=== PATIENT | male | born 1985 | race Hispanic/Latino ===

== ENCOUNTER 2023-06-07 23:37 | Inpatient (IN) | payer OTHER ==
[2023-06-08] MEDS ORDERED: cefTRIAXone (ROCEPHIN) 2 GM VIAL ONE (00:35)
[2023-06-08] MEDS ORDERED: Ketorolac Tromethamine 30 MG/ML VIAL ONE (00:35)
[2023-06-08 01:03] LABS: #Basophils 0.1 10x3/uL (0.0-0.2); #Neutrophils 9.5 10x3/uL (1.5-8.4); %Basophils 0.4 % (0.0-2.0); %Eosinophils 0.1 % (0.0-6.0); %Monocytes 8.5 % (0.0-10.0); %Neutrophils 79.6 % (40.0-75.0); Hematocrit 42.9 % (38.8-50.0); Hemoglobin 14.5 g/dL (13.5-17.5); Mean Corpuscular HGB CONC 33.8 g/dL (32.0-36.0); Mean Corpuscular Hemoglobin 30.5 pg (27.0-33.0); Mean Corpuscular Volume 90.1 fl (81.2-95.1); Mean Platelet Volume 10.1 fl (7.4-10.4); Platelet Count 208 10x3/uL (150-450); RBC Distribution Width 13.7 % (11.5-14.5); Red Blood Cell (RBC) Count 4.76 10x6/uL (4.32-5.72)
[2023-06-08 01:16] LABS: ALT (SGPT) 13 U/L (8-55); AST (SGOT) 7 U/L (5-34); Albumin 3.8 g/dL (3.5-5.0); Alkaline Phosphatase 70 U/L (40-110); Anion Gap 14 mmol/L (10-20); BUN (Urea Nitrogen) 8 mg/dL (8.9-20.6); Bilirubin, Total 0.6 mg/dL (0.2-1.2); Calc. Creatinine Clearance 0 mL/min (70-130); Calcium 8.6 mg/dL (7.8-10.44); Carbon Dioxide 21 mmol/L (22-29); Chloride 107 mmol/L (98-107); Estimated GFR 116; Globulin 2.8 g/dL (2.4-3.5); Glucose 92 mg/dL (70-105); Potassium 2.9 mmol/L (3.5-5.1); Protein, Total 6.6 g/dL (6.0-8.3); Sodium 139 mmol/L (136-145)
[2023-06-08] MEDS ORDERED: Potassium Chloride 20 MEQ TAB ONE ×2 (04:31→09:01)
[2023-06-08] MEDS ORDERED: Calcium Carbonate 500 MG ChewTAB PO PRN (05:17)
[2023-06-08] MEDS ORDERED: Ondansetron PF 4 MG/2 ML Vial IVP PRN (05:17)
[2023-06-08] MEDS ORDERED: Acetaminophen 325 MG TAB PO PRN (05:17)
[2023-06-08] MEDS ORDERED: Senokot S 8.6-50 MG TAB PO PRN (05:17)
[2023-06-08] MEDS ORDERED: HYDROcodone/Acetaminophen 5/325 mg Tablet PO PRN (05:17)
[2023-06-08] MEDS ORDERED: Vancomycin 1 GM VIAL ONE (05:48)
[2023-06-08] MEDS ORDERED: Lactated Ringer's 1,000 ML IV SCH (06:00)
[2023-06-08] MEDS ORDERED: Potassium Chloride 20 MEQ TAB PO SCH ×2 (06:00→09:00)
[2023-06-08 06:25] VITALS: BMI 26.6
[2023-06-08 06:45] LABS: SARS-CoV-2 NAA Rapid Test Not Detected (NotDetected)
[2023-06-08] MEDS ORDERED: Lactated Ringer's 1,000 ML ONE (08:49)
[2023-06-08] MEDS ORDERED: levETIRAcetam 500 MG TAB ONE (08:49)
[2023-06-08] MEDS: Lactated Ringer's 1,000 ML IV SCH ×2 (09:17→17:22)
[2023-06-08] MEDS: Betamethasone 0.1% Cream 15 GM TUBE TOP SCH ×2 (09:18→21:49)
[2023-06-08] MEDS: levETIRAcetam 500 MG TAB PO SCH ×2 (09:19→22:13)
[2023-06-08] MEDS: Vancomycin HCl 1 GM in Sodium Chloride 0.9% 250 ML 250 ML IVPB SCH ×2 (13:43→21:50)
[2023-06-08] MEDS: cefTRIAXone\\ROCEPHIN 2 GM in Sodium Chloride 0.9% 100 ML IVPB SCH (21:49)
[2023-06-09] MEDS: Lactated Ringer's 1,000 ML IV SCH ×3 (03:00→23:04)
[2023-06-09 05:06] LABS: #Basophils 0.1 10x3/uL (0.0-0.2); #Eosinphils 0.2 10x3/uL (0.0-0.5); #Neutrophils 7.5 10x3/uL (1.5-8.4); %Basophils 0.6 % (0.0-2.0); %Eosinophils 2.2 % (0.0-6.0); %Lymphocytes 15.3 % (18.0-47.0); %Monocytes 9.9 % (0.0-10.0); %Neutrophils 71.3 % (40.0-75.0); Hematocrit 45.7 % (38.8-50.0); Hemoglobin 14.9 g/dL (13.5-17.5); Mean Corpuscular HGB CONC 32.6 g/dL (32.0-36.0); Mean Corpuscular Volume 92.1 fl (81.2-95.1); Mean Platelet Volume 10.3 fl (7.4-10.4); Platelet Count 204 10x3/uL (150-450); RBC Distribution Width 13.9 % (11.5-14.5); Red Blood Cell (RBC) Count 4.96 10x6/uL (4.32-5.72); White Blood Cell (WBC) Count 10.6 10x3/uL (3.5-10.5)
[2023-06-09 05:32] LABS: Anion Gap 14 mmol/L (10-20); BUN (Urea Nitrogen) 7 mg/dL (8.9-20.6); Calc. Creatinine Clearance 149 mL/min (70-130); Calcium 8.8 mg/dL (7.8-10.44); Carbon Dioxide 21 mmol/L (22-29); Chloride 107 mmol/L (98-107); Estimated GFR 119; Glucose 139 mg/dL (70-105); Magnesium 1.9 mg/dL (1.6-2.6); Potassium 3.7 mmol/L (3.5-5.1); Sodium 138 mmol/L (136-145)
[2023-06-09 06:05] LABS: Vancomycin, Trough 11.2 ug/mL
[2023-06-09] MEDS: Vancomycin HCl 1 GM in Sodium Chloride 0.9% 250 ML 250 ML IVPB SCH ×3 (06:48→23:05)
[2023-06-09] MEDS: Magnesium Oxide 400 MG TAB PO SCH (09:15)
[2023-06-09] MEDS: levETIRAcetam 500 MG TAB PO SCH ×2 (09:16→22:12)
[2023-06-09] MEDS: Betamethasone 0.1% Cream 15 GM TUBE TOP SCH ×2 (09:16→22:12)
[2023-06-09] MEDS ORDERED: diphenhydrAMINE 30 GM TUBE TOP PRN (16:04)
[2023-06-09] MEDS: diphenhydrAMINE 25 MG CAP PO PRN (17:51)
[2023-06-09] MEDS: cefTRIAXone\\ROCEPHIN 2 GM in Sodium Chloride 0.9% 100 ML IVPB SCH (22:11)
[2023-06-10] MEDS: diphenhydrAMINE 25 MG CAP PO PRN ×2 (01:08→09:24)
[2023-06-10 05:34] LABS: #Basophils 0.1 10x3/uL (0.0-0.2); #Eosinphils 0.4 10x3/uL (0.0-0.5); #Neutrophils 5.7 10x3/uL (1.5-8.4); %Basophils 0.7 % (0.0-2.0); %Eosinophils 4.7 % (0.0-6.0); %Lymphocytes 22.1 % (18.0-47.0); %Monocytes 10.4 % (0.0-10.0); %Neutrophils 61.7 % (40.0-75.0); Hematocrit 45.8 % (38.8-50.0); Hemoglobin 15.2 g/dL (13.5-17.5); Mean Corpuscular HGB CONC 33.2 g/dL (32.0-36.0); Mean Corpuscular Hemoglobin 30.2 pg (27.0-33.0); Mean Corpuscular Volume 90.9 fl (81.2-95.1); Mean Platelet Volume 10.1 fl (7.4-10.4); Platelet Count 232 10x3/uL (150-450); Red Blood Cell (RBC) Count 5.04 10x6/uL (4.32-5.72); White Blood Cell (WBC) Count 9.2 10x3/uL (3.5-10.5)
[2023-06-10 05:41] LABS: Anion Gap 15 mmol/L (10-20); BUN (Urea Nitrogen) 9 mg/dL (8.9-20.6); Calc. Creatinine Clearance 160 mL/min (70-130); Calcium 9.1 mg/dL (7.8-10.44); Carbon Dioxide 23 mmol/L (22-29); Chloride 106 mmol/L (98-107); Estimated GFR 121; Glucose 86 mg/dL (70-105); Potassium 4.2 mmol/L (3.5-5.1); Sodium 140 mmol/L (136-145); Vancomycin, Trough 13.8 ug/mL
[2023-06-10] MEDS: Vancomycin HCl 1 GM in Sodium Chloride 0.9% 250 ML 250 ML IVPB SCH ×3 (05:53→21:46)
[2023-06-10] MEDS: levETIRAcetam 500 MG TAB PO SCH ×2 (09:18→21:00)
[2023-06-10] MEDS: Magnesium Oxide 400 MG TAB PO SCH (09:18)
[2023-06-10] MEDS: Triamcinolone 0.1% Cream 15 GM TUBE TOP SCH ×2 (09:18→21:02)
[2023-06-10] MEDS: cefTRIAXone\\ROCEPHIN 2 GM in Sodium Chloride 0.9% 100 ML IVPB SCH (20:56)
[2023-06-10] MEDS: diphenhydrAMINE 25 MG CAP PO SCH (21:00)
[2023-06-10] MEDS ORDERED: Montelukast Sodium 10 mg Tablet PO SCH (21:00)
[2023-06-11 03:46] LABS: #Basophils 0.1 10x3/uL (0.0-0.2); #Eosinphils 0.5 10x3/uL (0.0-0.5); #Monocytes 0.7 10x3/uL (0.0-1.1); #Neutrophils 4.9 10x3/uL (1.5-8.4); %Basophils 1.1 % (0.0-2.0); %Eosinophils 5.5 % (0.0-6.0); %Lymphocytes 23.8 % (18.0-47.0); %Monocytes 8.5 % (0.0-10.0); Anion Gap 15 mmol/L (10-20); BUN (Urea Nitrogen) 12 mg/dL (8.9-20.6); Calc. Creatinine Clearance 151 mL/min (70-130); Calcium 9.4 mg/dL (7.8-10.44); Carbon Dioxide 23 mmol/L (22-29); Chloride 104 mmol/L (98-107); Estimated GFR 119; Glucose 89 mg/dL (70-105); Hematocrit 48.7 % (38.8-50.0); Hemoglobin 15.9 g/dL (13.5-17.5); Mean Corpuscular HGB CONC 32.6 g/dL (32.0-36.0); Mean Corpuscular Hemoglobin 29.8 pg (27.0-33.0); Mean Corpuscular Volume 91.4 fl (81.2-95.1); Mean Platelet Volume 10.1 fl (7.4-10.4); Platelet Count 250 10x3/uL (150-450); Potassium 3.8 mmol/L (3.5-5.1); RBC Distribution Width 13.9 % (11.5-14.5); Red Blood Cell (RBC) Count 5.33 10x6/uL (4.32-5.72); Sodium 138 mmol/L (136-145); White Blood Cell (WBC) Count 8.1 10x3/uL (3.5-10.5)
[2023-06-11] MEDS: Vancomycin HCl 1 GM in Sodium Chloride 0.9% 250 ML 250 ML IVPB SCH ×2 (05:09→15:42)
[2023-06-11] MEDS: Triamcinolone 0.1% Cream 15 GM TUBE TOP SCH (09:15)
[2023-06-11] MEDS: Magnesium Oxide 400 MG TAB PO SCH (09:15)
[2023-06-11] MEDS: diphenhydrAMINE 25 MG CAP PO SCH (09:15)
[2023-06-11] MEDS: levETIRAcetam 500 MG TAB PO SCH (09:15)
[2023-06-11 12:49] VITALS: TEMP 97.8
[2023-06-11] MEDS ORDERED: Doxycycline 100 MG CAP PO SCH (16:00)
[2023-06-11] MEDS ORDERED: AMOXicillin 250 MG CAP PO SCH (16:00)
[2023-06-11 16:46] VITALS: BP 135/68
== END 2023-06-11 16:52 | DRG 872 ==
LOC: CSHERS 23:37 → EEVIPCON 06-08 05:29 → CSHERHOLD 06-08 05:29 → CSHTELE 06-08 12:47
PROVIDERS: ADMIT Student in an Organized Health Care Education/Training Program; ATTEND Internal Medicine
DX: A41.9 Sepsis, unspecified organism (principal); L03.116 Cellulitis of left lower limb; E53.0 Riboflavin deficiency; R65.20 Severe sepsis without septic shock; L30.9 Dermatitis, unspecified; D72.829 Elevated white blood cell count, unspecified; E87.6 Hypokalemia; G43.909 Migraine, unspecified, not intractable, without status migrainosus; J45.909 Unspecified asthma, uncomplicated; Z20.822 Contact with and (suspected) exposure to COVID-19; Z79.899 Other long term (current) drug therapy
CPT/HCPCS: 36415; 80048; 80053; 80202; 83605; 83735; 85025; 87040; 94640; 96365; 96366; 96367; 96375; 97139; J0696; J1650; J1885; J3370; J3490; J7050; J7120